=== PATIENT | female | born 1980 ===

== ENCOUNTER 2018-09-24 06:20 | Day surgery (SDC) | payer OTHER ==
[2018-09-24] MEDS ORDERED: SUBLIMAZE IV PRN (07:25)
[2018-09-24] MEDS ORDERED: NORCO 5/325 PO PRN (07:25)
--- NOTE | 2018-09-24 07:25 | Anesthesia Consultation ---
Anesthesia Consult and Med Hx Date of service: 09/24/18 - Airway Anesthetic Teeth Evaluation: Good (upper implants) ROM Head & Neck: Adequate Mental/Hyoid Distance: Adequate Mallampati Class: Class III Intubation Access Assessment: Possibly Difficult - Pulmonary Exam CTA: Yes - Cardiac Exam Cardiac Exam: RRR - Pre-Operative Health Status ASA Pre-Surgery Classification: ASA2 Proposed Anesthetic Plan: General - Pulmonary Hx Smoking: No Hx Asthma: Yes (last albuterol use 2-3wks ago; "mild" per patient) Hx Respiratory Symptoms: No SOB: No - Cardiovascular System Hx Hypertension: No Hx Heart Attack/AMI: No Hx Percutaneous Transluminal Coronary Angioplasty (PTCA): No Hx Cardia Arrhythmia: No - Central Nervous System Hx Seizures: No CVA: No - Gastrointestinal Hx Gastroesophageal Reflux Disease: No - Endocrine Hx Renal Disease: No Hx Liver Disease: No Hx Insulin Dependent Diabetes: No Hx Non-Insulin Dependent Diabetes: No Hx Thyroid Disease: No - Other Systems Hx Obesity: No - Additional Comments Anesthesia Medical History Comments: No hx anesthetic complications.
--- NOTE | 2018-09-24 07:25 | Anesthesia Day of Surgery ---
Anesthesia Day of Surgery - Day of Surgery Patient Examined: Yes Patient H&P Reviewed: Yes Patient is NPO: Yes
[2018-09-24] MEDS ORDERED: LACTATED RINGERS 1,000 ML IV SCH (08:00)
[2018-09-24] MEDS ORDERED: VERSED IV NR (08:00)
[2018-09-24] MEDS ORDERED: NARCAN 0.4 MG/1 ML IV PRN (08:07)
[2018-09-24] MEDS ORDERED: DILAUDID IV PRN (08:07)
[2018-09-24] MEDS ORDERED: ZOFRAN IV PRN (08:07)
[2018-09-24] MEDS ORDERED: SILVER NITRATE TP ONE (08:36)
[2018-09-24] MEDS ORDERED: XYLOCAINE MPF 2% ONE (08:43)
[2018-09-24] MEDS ORDERED: SUBLIMAZE ONE (08:43)
[2018-09-24] MEDS ORDERED: DIPRIVAN 10 MG/ML IV ONE (08:43)
[2018-09-24] MEDS ORDERED: PEPCID IV ONE (09:14)
[2018-09-24 11:24] VITALS: BP 112/68
--- NOTE | 2018-09-24 14:55 | Post Anesthesia Evaluation ---
- Post Anesthesia Evaluation Patient Participated: Yes Airway Patent: Yes Stable Respiratory Function: Yes Nausea/Vomiting: No Temp > 96.8F: Yes Pain Manageable: Yes Adequeate Hydration: Yes Anesthesia Complications: No
--- NOTE | 2018-09-24 15:59 | Operative Report ---
Operative Report Operative Report: Preoperative diagnosis: 1. Abnormal uterine bleeding. 2. Thickened endometrium. Postoperative diagnosis: 1. Abnormal uterine bleeding. 2. Thickened endometrium. 3. Endometrial polyps. Procedure: 1. Hysteroscopy. 2. D&C 3. Endometrial polypectomy. Surgeon: Dr. Valles Cad Librarian: none Anesthesia: IV sedation with MAC. EBL: minimal IVF: RL 1 liter Complications: none Procedure details: The risks, benefits, and alternatives of the procedure were discussed in detail with the patient which included but not limited to infection, hemorrhage requiring blood transfusion, and uterine perforation. The patient expressed understanding, her questions answered, and she gave informed consent. The patient was taken to the operating room with an IVF infusing Ringer's lactate. In the operating room, she was placed in the dorsal supine position and given IV sedation with MAC. Then, she was placed on the stirrups in a dorsal lithotomy position. The perineum vagina and cervix were washed and she was prepared and draped in the usual sterile fashion. Examination under anesthesia revealed normal external genitalia and vagina. The cervix was closed, long, posterior with mild bleeding at the os. The uterus was 8-10 wk- size, anteverted, mobile, the adnexae were nonpalpable. A weighted speculum was placed placed on the posterior vaginal wall. The anterior lip of the cervix was grasped with a single-tooth tenaculum. Endocervical curettage was done. The cervical os was dilated and the hysteroscope was introduced into the uterine cavity. It revealed thickened endometrial lining and polyps. The ostia were not visualized. The hysteroscope was removed from the uterine cavity. The polyps were removed. A gentle curettage was performed until a gritty texture was noticed. The specimen which consisted of ECC, EMC and endometrial polyps was sent to pathology. The instruments were removed from the cervix and vagina. The count of laps, needles, sponges, and instrument were correct 2. The patient tolerated the procedure well. She was awakened from the anesthesia and taken to the recovery room in a stable condition.
== END 2018-09-24 06:21 | disposition home or self-care (01) ==
LOC: OR 06:20
PROVIDERS: ATTEND Obstetrics & Gynecology
DX: N84.0 Polyp of corpus uteri (principal); N93.8 Other specified abnormal uterine and vaginal bleeding; R93.89 Abnormal findings on diagnostic imaging of other specified body structures; G43.909 Migraine, unspecified, not intractable, without status migrainosus; J45.909 Unspecified asthma, uncomplicated; Z90.49 Acquired absence of other specified parts of digestive tract; Z79.899 Other long term (current) drug therapy; Z98.890 Other specified postprocedural states; Z86.2 Personal history of diseases of the blood and blood-forming organs and certain disorders involving the immune mechanism
CPT/HCPCS: 58558; 81025; 88305; J2250; J2704; J3010; J7120